=== PATIENT | female | born 1990 | race African-American/Black ===

== ENCOUNTER 2022-06-28 11:33 | Inpatient (IN) | payer OTHER ==
[2022-06-28] MEDS ORDERED: Misoprostol 25 MCG (1/4 of 100 MCG) Tab VAG PRN ×4 (12:35→12:36)
[2022-06-28] MEDS ORDERED: Terbutaline 1 MG/ML SDV SUBCUT PRN ×2 (12:35→12:36)
[2022-06-28] MEDS ORDERED: Water For Irrigation,Sterile 1,000 ML Container IRR PRN (12:36)
[2022-06-28] MEDS ORDERED: Tranexamic Acid 1,000 MG in Sodium Chloride 0.9% 100 ML IV PRN (12:36)
[2022-06-28] MEDS ORDERED: Butorphanol 1 MG/ML SDV IVPUSH PRN (12:36)
[2022-06-28] MEDS ORDERED: Carboprost Tromethamine 250 MCG/1 ML Amp IM PRN (12:36)
[2022-06-28] MEDS ORDERED: Sodium Chloride 0.9% 2.5 ML Syringe FLUSH PRN (12:36)
[2022-06-28] MEDS ORDERED: Methylergonovine 0.2 MG/1 ML Amp IM PRN (12:36)
[2022-06-28] MEDS ORDERED: Sodium Chloride 0.9% 20 ML SDV IV PRN (12:36)
[2022-06-28] MEDS ORDERED: Lidocaine 1% 50 ML MDV INJECT PRN (12:36)
[2022-06-28] MEDS ORDERED: Sodium Chloride 0.9% 10 ML Syringe FLUSH PRN (12:36)
[2022-06-28] MEDS ORDERED: Misoprostol 200 MCG Tab PO PRN (12:36)
[2022-06-28] MEDS ORDERED: Lactated Ringers 1,000 ML IV SCH (12:45)
[2022-06-28] MEDS ORDERED: Oxytocin/0.9 % Sodium Chloride 30 UNIT/500 ML BAG IV SCH ×3 (12:45)
[2022-06-28] MEDS ORDERED: Misoprostol 25 MCG (1/4 of 100 MCG) Tab PO ONE (14:12)
[2022-06-28] MEDS ORDERED: Acetaminophen 500 MG Tab PO PRN (22:12)
[2022-06-28] MEDS ORDERED: Benzocaine/Menthol 20%-0.5% Spray 78 GM Cannister TOP PRN (22:12)
[2022-06-28] MEDS ORDERED: Docusate Sodium 100 MG Cap PO PRN (22:12)
[2022-06-28] MEDS ORDERED: Bisacodyl 10 MG Supp RECTAL PRN (22:12)
[2022-06-28] MEDS ORDERED: Lanolin 100% Cream 7 GM Tube TOP PRN (22:12)
[2022-06-28] MEDS ORDERED: Ibuprofen 400 MG Tab PO PRN (22:12)
[2022-06-29] MEDS: Witch Hazel Medicated Pads 40/Jar TOP PRN (00:21)
[2022-06-29] MEDS: Ibuprofen 800 MG Tab PO PRN ×2 (00:21→08:34)
[2022-06-29] MEDS: Acetaminophen 500 MG Tab PO PRN ×2 (00:22→08:34)
[2022-06-30] MEDS: Ibuprofen 800 MG Tab PO PRN (09:42)
[2022-06-30] MEDS: Witch Hazel Medicated Pads 40/Jar TOP PRN (18:40)
== END 2022-06-30 18:50 | disposition home or self-care (01) | DRG 807 ==
LOC: MW.OBCHECK 11:33 → MW.OB 11:34 → MW.OBCHECK 11:50 → MW.OB 11:51 → OBSVTOIN 21:33 → MW.OB 06-29 01:11
PROVIDERS: ADMIT Obstetrics & Gynecology Obstetrics; ATTEND Obstetrics & Gynecology Obstetrics
PROC: 10E0XZZ Delivery of Products of Conception, External Approach (ICD-10-PCS; principal; 2022-06-28)
PROC: 0KQM0ZZ Repair Perineum Muscle, Open Approach (ICD-10-PCS; 2022-06-28)
PROC: 3E0P7VZ Introduction of Hormone into Female Reproductive, Via Natural or Artificial Opening (ICD-10-PCS; 2022-06-28)
PROC: 10907ZC Drainage of Amniotic Fluid, Therapeutic from Products of Conception, Via Natural or Artificial Opening (ICD-10-PCS; 2022-06-28)
DX: O75.3 Other infection during labor (principal); Z37.0 Single live birth; N30.90 Cystitis, unspecified without hematuria; B96.1 Klebsiella pneumoniae [K. pneumoniae] as the cause of diseases classified elsewhere; O70.1 Second degree perineal laceration during delivery; O69.81X0 Labor and delivery complicated by cord around neck, without compression, not applicable or unspecified; Z3A.39 39 weeks gestation of pregnancy; Z20.822 Contact with and (suspected) exposure to COVID-19; O99.02 Anemia complicating childbirth; D64.9 Anemia, unspecified; E55.9 Vitamin D deficiency, unspecified; O99.892 Other specified diseases and conditions complicating childbirth
CPT/HCPCS: 36415; 59025; 59409; 85014; 85018; 85025; 86592; 86850; 86900; 86901; A9270-GY; J0595; J2001; J2590; J7120; U0002

== ENCOUNTER 2023-08-24 00:01 | Inpatient (IN) | payer OTHER ==
[2023-08-24] MEDS ORDERED: Misoprostol 200 MCG Tab PO PRN (00:23)
[2023-08-24] MEDS ORDERED: Methylergonovine 0.2 MG/1 ML Amp IM PRN (00:23)
[2023-08-24] MEDS ORDERED: Nalbuphine 10 MG/0.5 ML Syringe IVPUSH PRN (00:23)
[2023-08-24] MEDS ORDERED: Lidocaine 1% 50 ML MDV INJECT PRN (00:23)
[2023-08-24] MEDS ORDERED: Ondansetron 4 MG/2 ML SDV IVPUSH PRN (00:23)
[2023-08-24] MEDS ORDERED: Sodium Chloride 0.9% 20 ML SDV IV PRN (00:23)
[2023-08-24] MEDS ORDERED: Butorphanol 2 MG/ML SDV IVPUSH PRN (00:23)
[2023-08-24] MEDS ORDERED: Terbutaline 1 MG/ML SDV SUBCUT PRN (00:23)
[2023-08-24] MEDS ORDERED: Tranexamic Acid IN NACL,ISO-OS 1,000 MG in Premix Bag 1 BAG IV PRN ×2 (00:23)
[2023-08-24] MEDS ORDERED: Water For Irrigation,Sterile 1,000 ML Container IRR PRN (00:23)
[2023-08-24] MEDS ORDERED: Misoprostol 25 MCG (1/4 of 100 MCG) Tab VAG PRN ×2 (00:23)
[2023-08-24] MEDS ORDERED: Sodium Chloride 0.9% 10 ML Syringe FLUSH PRN (00:23)
[2023-08-24] MEDS ORDERED: Carboprost Tromethamine 250 MCG/1 mL Vial IM PRN (00:23)
[2023-08-24] MEDS ORDERED: Sodium Chloride 0.9% 2.5 ML Syringe FLUSH PRN (00:23)
[2023-08-24] MEDS ORDERED: Oxytocin/0.9 % Sodium Chloride 30 UNIT/500 ML BAG IV SCH ×2 (00:30)
[2023-08-24] MEDS ORDERED: Misoprostol 25 MCG (1/4 of 100 MCG) Tab PO ONE (00:33)
[2023-08-24] MEDS: Lactated Ringers 1,000 ML IV SCH ×3 (01:16→07:05)
[2023-08-24 01:35] LABS: HEMATOCRIT 34.6 % (37.0-47.0); HEMOGLOBIN 11.4 g/dL (12.0-16.0); MEAN CORPUSCULAR HEMOGLOBIN 27.8 pg (28.0-32.0); MEAN CORPUSCULAR HGB CONC 32.9 g/dL (32.0-36.0); MEAN CORPUSCULAR VOLUME 84.4 fL (83.0-99.0); MEAN PLATELET VOLUME 12.4 fL (9.4-12.3); PLATELET COUNT,PLT 193 K/uL (150-400); WHITE BLOOD CELL COUNT,WBC 8.18 K/uL (3.9-11.3)
[2023-08-24] MEDS ORDERED: Phenylephrine HCl 0.5 MG/5 ML AMP ONE (06:51)
[2023-08-24] MEDS ORDERED: dexmedeTOMIDine HCl 200 MCG/2 ML SDV ONE (06:51)
[2023-08-24] MEDS ORDERED: Ropivacaine HCl/PF 200 ML ONE (06:52)
[2023-08-24] MEDS ORDERED: Bupivacaine 0.25% 10 ML SDV ONE (06:52)
[2023-08-24] MEDS ORDERED: Phenylephrine HCl 0.5 MG/5 ML AMP IVPUSH PRN (07:01)
[2023-08-24] MEDS ORDERED: ePHEDrine 50 MG/ML SDV IVPUSH PRN ×2 (07:01)
[2023-08-24] MEDS ORDERED: Ropivacaine HCl/PF 400 MG in Premix Bag 1 BAG EPIDUR SCH (07:15)
[2023-08-24] MEDS ORDERED: Ibuprofen 800 MG Tab ONE (17:17)
[2023-08-24] MEDS ORDERED: Acetaminophen 500 MG Tab PO PRN (17:22)
[2023-08-24] MEDS ORDERED: Lanolin 100% Cream 7 GM Tube TOP PRN (17:22)
[2023-08-24] MEDS ORDERED: Docusate Sodium 100 MG Cap PO PRN (17:22)
[2023-08-24] MEDS ORDERED: Witch Hazel Medicated Pads 40/Jar TOP PRN (17:22)
[2023-08-24] MEDS ORDERED: Benzocaine/Menthol 20%-0.5% Spray 78 GM Cannister TOP PRN (17:22)
[2023-08-25] MEDS: Ibuprofen 800 MG Tab PO PRN ×2 (04:50→15:39)
[2023-08-25 06:16] LABS: HEMATOCRIT 31.5 % (37.0-47.0); HEMOGLOBIN 10.3 g/dL (12.0-16.0)
== END 2023-08-25 17:15 | disposition home or self-care (01) | DRG 807 ==
LOC: MW.OB 00:01 → OBSVTOIN 11:00 → MW.OB 15:10
PROVIDERS: ADMIT Obstetrics & Gynecology Obstetrics; ATTEND Obstetrics & Gynecology Obstetrics
PROC: 10E0XZZ Delivery of Products of Conception, External Approach (ICD-10-PCS; principal; 2023-08-24)
PROC: 3E0P7VZ Introduction of Hormone into Female Reproductive, Via Natural or Artificial Opening (ICD-10-PCS; 2023-08-24)
DX: O42.02 Full-term premature rupture of membranes, onset of labor within 24 hours of rupture (principal); Z37.0 Single live birth; Z3A.39 39 weeks gestation of pregnancy
CPT/HCPCS: 36415; 51702; 59025; 59409; 85014; 85018; 85027; 86592; 86850; 86900; 86901; A9270-GY; J2371; J2590; J2795; J3490; J7120

== ENCOUNTER 2024-09-19 21:13 | Emergency (ER) | payer SELFPAY ==
[2024-09-19 22:00] LABS: BASOPHILS ABSOLUTE AUTO 0.04 K/uL (0.00-0.20); BASOPHILS PERCENT AUTO 0.7 % (0.0-1.0); EOSINOPHILS ABSOLUTE AUTO 0.14 K/uL (0.00-0.45); EOSINOPHILS PERCENT AUTO 2.3 % (0.0-6.0); HEMATOCRIT 36.2 % (37.0-47.0); HEMOGLOBIN 12.1 g/dL (12.0-16.0); LYMPHOCYTES ABSOLUTE AUTO 2.83 K/uL (1.00-4.80); MEAN CORPUSCULAR HEMOGLOBIN 29.3 pg (28.0-32.0); MEAN CORPUSCULAR HGB CONC 33.4 g/dL (32.0-36.0); MEAN CORPUSCULAR VOLUME 87.7 fL (83.0-99.0); MEAN PLATELET VOLUME 11.7 fL (9.4-12.3); MONOCYTES ABSOLUTE AUTO 0.67 K/uL (0.00-0.80); MONOCYTES PERCENT AUTO 11.1 % (0.0-8.0); NEUTROPHILS ABSOLUTE AUTO 2.34 K/uL (1.80-7.70); NEUTROPHILS PERCENT AUTO 38.9 % (41.0-71.0); PLATELET COUNT,PLT 163 K/uL (150-400); RED BLOOD CELL COUNT 4.13 M/uL (4.10-5.30); WHITE BLOOD CELL COUNT,WBC 6.02 K/uL (3.9-11.3)
== END 2024-09-19 23:16 | disposition left against medical advice (07) ==
LOC: MW.ED 21:13
DX: Z53.21 Procedure and treatment not carried out due to patient leaving prior to being seen by health care provider (principal)
CPT/HCPCS: 36415; 84702; 85025; 86900; 86901

== ENCOUNTER 2024-09-22 22:10 | Emergency (ER) | payer SELFPAY ==
[2024-09-22 23:23] LABS: BASOPHILS ABSOLUTE AUTO 0.01 K/uL (0.00-0.20); BASOPHILS PERCENT AUTO 0.1 % (0.0-1.0); EOSINOPHILS ABSOLUTE AUTO 0.11 K/uL (0.00-0.45); EOSINOPHILS PERCENT AUTO 1.6 % (0.0-6.0); HEMOGLOBIN 11.4 g/dL (12.0-16.0); IMMATURE GRAN ABSOLUTE AUTO 0.01 K/uL (0.00-0.05); IMMATURE GRAN PERCENT AUTO 0.1 % (0.0-0.4); LYMPHOCYTES ABSOLUTE AUTO 2.82 K/uL (1.00-4.80); MEAN CORPUSCULAR HEMOGLOBIN 28.9 pg (28.0-32.0); MEAN CORPUSCULAR HGB CONC 32.6 g/dL (32.0-36.0); MEAN CORPUSCULAR VOLUME 88.8 fL (83.0-99.0); MEAN PLATELET VOLUME 12.2 fL (9.4-12.3); MONOCYTES ABSOLUTE AUTO 0.56 K/uL (0.00-0.80); MONOCYTES PERCENT AUTO 8.3 % (0.0-8.0); NEUTROPHILS ABSOLUTE AUTO 3.21 K/uL (1.80-7.70); NEUTROPHILS PERCENT AUTO 47.9 % (41.0-71.0); PLATELET COUNT,PLT 147 K/uL (150-400); RED BLOOD CELL COUNT 3.94 M/uL (4.10-5.30); WHITE BLOOD CELL COUNT,WBC 6.72 K/uL (3.9-11.3)
== END 2024-09-23 01:05 | disposition home or self-care (01) ==
LOC: MW.ED 22:10
DX: O20.0 Threatened abortion (principal); Z3A.01 Less than 8 weeks gestation of pregnancy
CPT/HCPCS: 36415; 76801; 76801-26; 84702; 85025; 86900; 86901; 99284